=== PATIENT | male | born 1980 | race American Indian/Alaskan Native ===

== ENCOUNTER 2019-05-01 20:29 | Emergency (ER) | payer OTHER ==
[2019-05-01] MEDS ORDERED: ALBUTEROL 2.5 MG/3 ML NEBU IH ONE (20:54)
[2019-05-01] MEDS ORDERED: methylPREDNISolone Sod Succinate 125 MG/2 ML INJ IV ONE (20:55)
[2019-05-01] MEDS ORDERED: IPRATROPIUM 0.02% NEBU 2.5 ML IH ONE (20:55)
--- NOTE | 2019-05-01 21:01 | Emergency Department Report ---
ED Shortness of Breath HPI - General Chief Complaint: Burn/Smoke Inhalation Stated Complaint: RESPIRATORY DISTRESS Time Seen by Provider: 05/01/19 20:44 Source: patient, EMS Mode of arrival: Stretcher Limitations: No Limitations - History of Present Illness Initial Comments: 39-year-old male presents to ED with shortness of breath. Patient has a history of asthma and hypertension. States he was at work when an acid spill occurred. Patient is unsure what type of acid it was. Patient reports he stayed in that area for 2-3 minutes attempting to save the other equipment from the acid. He states he was not wearing a mask and inhaled some of the fumes. Patient then left the area where the spill occurred and states he began to have an asthma attack, with coughing and wheezing. Also reports burning to his nose and nasal passage. EMS was called, patient given albuterol neb treatment and transported to the ED. MD Complaint: shortness of breath -: This evening Severity: moderate Consistency: constant Improves With: bronchodilators Worsens With: nothing Known History Of: asthma Context: other (chemical exposure) Associated Symptoms: cough Treatments Prior to Arrival: bronchodilator - Related Data Home Oxygen Therapy: No Previous Rx's Medication Instructions Recorded Last Taken Type Albuterol Sulfate [Proventil Hfa] 2 puff IH Q4HR PRN #1 hfa.aer.ad 05/01/19 Unknown Rx Benzonatate [Tessalon Perles] 100 mg PO Q8HR PRN #20 capsule 05/01/19 Unknown Rx predniSONE [Deltasone] 50 mg PO QDAY #5 tab 05/01/19 Unknown Rx Allergies Allergy/AdvReac Type Severity Reaction Status Date / Time No Known Allergies Allergy Unverified 05/01/19 20:53 ED Review of Systems ROS: Stated complaint: RESPIRATORY DISTRESS Other details as noted in HPI Comment: All other systems reviewed and negative Constitutional: denies: chills, fever Respiratory: cough, shortness of breath, wheezing ED Past Medical Hx - Past Medical History Previous Medical History?: Yes Hx Hypertension: Yes Hx Asthma: Yes - Surgical History Past Surgical History?: Yes Additional Surgical History: hip surgery, metal on pelvic are and acetabulum - Social History Smoking Status: Former Smoker Substance Use Type: None - Medications Home Medications: Home Medications Medication Instructions Recorded Confirmed Last Taken Type Albuterol Sulfate [Proventil Hfa] 2 puff IH Q4HR PRN #1 hfa.aer.ad 05/01/19 Un known Rx Benzonatate [Tessalon Perles] 100 mg PO Q8HR PRN #20 capsule 05/01/19 Unknown Rx predniSONE [Deltasone] 50 mg PO QDAY #5 tab 05/01/19 Unknown Rx ED Physical Exam - General Limitations: No Limitations General appearance: alert, in no apparent distress - Head Head exam: Present: atraumatic, normocephalic - Eye Eye exam: Present: normal appearance, PERRL, EOMI - ENT ENT exam: Present: mucous membranes moist - Neck Neck exam: Present: normal inspection - Respiratory Respiratory exam: Present: wheezes (slight, bilateral) - Cardiovascular Cardiovascular Exam: Present: regular rate, normal rhythm - GI/Abdominal GI/Abdominal exam: Present: soft. Absent: distended, tenderness - Extremities Exam Extremities exam: Present: normal inspection - Neurological Exam Neurological exam: Present: alert, oriented X3, CN II-XII intact. Absent: motor sensory deficit - Psychiatric Psychiatric exam: Present: normal affect, normal mood - Skin Skin exam: Present: warm, dry, intact, normal color ED Course Vital Signs 05/01/19 05/01/19 05/01/19 20:47 21:18 23:00 Temperature 98.5 F Pulse Rate 86 84 Pulse Rate [ 81 Anterior Bilateral Throughout] Respiratory 14 15 Rate Respiratory 12 Rate [Anterior Bilateral Throughout] Blood Pressure 121/86 131/83 Blood Pressure 121/86 [Left] O2 Sat by Pulse 93 91 Oximetry ED Medical Decision Making - Radiology Data Radiology results: report reviewed, image reviewed - Medical Decision Making 39-year-old male with chemical exposure to unknown acid. Patient states he inhaled the fumes while at work which triggered an asthma attack. Patient given albuterol nebulizer treatment by EMS, additionally here in the ED. IV Solu- Medrol as well. Patient is not hypoxic, no respiratory distress, only slight wheezes present. Chest x-ray normal, no evidence of pulmonary edema, infiltrates, or any other abnormalities. Following neb treatment and steroids patient feeling much better. Will discharge at this time with prescription for prednisone. Outpatient follow-up advised. Return precautions given. - Differential Diagnosis asthma, chemical exposure, pneumonitis, pulm edema Critical care attestation.: If time is entered above; I have spent that time in minutes in the direct care of this critically ill patient, excluding procedure time. ED Disposition Clinical Impression: Asthma with acute exacerbation, Chemical exposure Disposition: DC- TO HOME OR SELFCARE Is pt being admited?: No Condition: Stable Instructions: Asthma (ED), Chemical Pneumonitis (ED) Prescriptions: predniSONE [Deltasone] 50 mg PO QDAY #5 tab Albuterol Sulfate [Proventil Hfa] 2 puff IH Q4HR PRN #1 hfa.aer.ad PRN Reason: Wheezing Benzonatate [Tessalon Perles] 100 mg PO Q8HR PRN #20 capsule PRN Reason: Cough Referrals: [facility] [Provider Group] - 3-5 Days CLARE MCCRARY MD [Staff Physician] - 3-5 Days PRIMARY CAREMD [Primary Care Provider] - 3-5 Days
--- NOTE | 2019-05-01 21:37 | XRay Report ---
CHEST 1 VIEW 2103 INDICATION / CLINICAL INFORMATION: sob. COMPARISON: None currently available. FINDINGS: SUPPORT DEVICES: None HEART / MEDIASTINUM: No significant abnormality. LUNGS / PLEURA: No significant pulmonary or pleural abnormality. No pneumothorax. ADDITIONAL FINDINGS: No fractures seen posteriorly of the right fifth rib and the posterior lateral a spects of the right sixth and seventh ribs show what probably are old fractures though these are some what age indeterminate and may only be partially healed. There also is a fracture of the lateral aspe ct of the right third rib with slight lateral displacement which is not clearly healed could be acute . IMPRESSION: No significant acute cardiopulmonary abnormality. Rib fractures as discussed above. Signer Name: Qamar Jose MD Signed: 05/01/2019 9:32 PM Workstation Name: [id number]
[2019-05-01 23:17] VITALS: BP 131/83
== END 2019-05-01 23:24 | disposition home or self-care (01) ==
LOC: ED 20:29
DX: J45.901 Unspecified asthma with (acute) exacerbation (principal); I10 Essential (primary) hypertension; Z77.098 Contact with and (suspected) exposure to other hazardous, chiefly nonmedicinal, chemicals; Z87.891 Personal history of nicotine dependence
CPT/HCPCS: 71045; 94640; 96374; 99284; J2930; 94644